=== PATIENT | female | born 1945 | race Caucasian/White ===

== ENCOUNTER → 2016-07-09 | Outpatient (CLI) | payer MEDICARE, BC | END | disposition home or self-care (01) | LOC: PCVCIMAG 13:02 | PROVIDERS: ATTEND Nuclear Medicine Nuclear Cardiology | DX: I73.9 Peripheral vascular disease, unspecified (principal); K55.1 Chronic vascular disorders of intestine; I63.9 Cerebral infarction, unspecified; I25.10 Atherosclerotic heart disease of native coronary artery without angina pectoris; E78.5 Hyperlipidemia, unspecified; Z95.1 Presence of aortocoronary bypass graft | CPT/HCPCS: 93923; 93925; 93975; G0463; 93924 ==

== ENCOUNTER → 2017-01-14 | Outpatient (CLI) | payer MEDICARE, BC ==
--- NOTE | 2017-01-14 09:48 | PCVCIMAG ---
APPROVED REPORT Laterality: Bilateral Patient Location: Out-Patient Indications Stenosis Doppler Spectral Velocity Analysis PSV / EDVPSV / EDV ECA (R) 141 / 9 cm/sECA (L) 112 / 0 cm/s dICA (R) 101 / 21 cm/sdICA (L) 91 / 16 cm/s Alexander (R) 138 / 21 cm/smICA (L) 171 / 25 cm/s pICA (R) 127 / 20 cm/spICA (L) 177 / 35 cm/s Bulb (R) 84 / 15 cm/sBulb (L) 88 / 13 cm/s dCCA (R) 86 / 15 cm/sdCCA (L) 72 / 11 cm/s mCCA (R) 96 / 15 cm/smCCA (L) 91 / 13 cm/s pCCA (R) 79 / 12 cm/spCCA (L) Vert (R) 48 / 11 cm/sVert (L) 56 / 39 cm/s ICA/CCA ICA/CCA Findings The right carotid bulb has mild plaque. The right proximal internal carotid artery shows <40% stenosis. The right common carotid artery shows <40% stenosis. The right external carotid artery shows no significant stenosis. The left carotid bulb has moderately severe calcified plaque. The left proximal internal carotid artery shows 60-70% stenosis. The left common carotid artery shows no significant stenosis. The left external carotid artery shows <40% stenosis. Conclusion 1. Right common and internal carotid artery stenoses (<40%) 2. Left internal carotid artery stenosis (60-70%) 3. Antegrade vertebral flow
--- NOTE | 2017-01-14 10:56 | PCVCIMAG ---
EXAM: BILATERAL LOWER EXTREMITY ARTERIAL DUPLEX INDICATION: Peripheral Arterial Disease. Leg pain. FINDINGS: Right Leg: Satisfactory arterial waveforms throughout the common/profunda/superficial femoral, popliteal, anterior tibial, peroneal, and posterior tibial arteries. No flow limiting stenosis seen. Left Leg: Mild stenosis throughout the common femoral artery. Elevated systolic velocity of 305 cm/s the origins superficial femoral artery consistent with 60-70% restenosis in the proximal portion of a prior stent. Upper superficial femoral artery stent otherwise patent. Stent in the distal superficial femoral artery and upper popliteal artery showing good patency. The anterior tibial, peroneal, posterior tibial arteries are patent. IMPRESSION: No flow limiting stenosis in the right lower extremity. 60-70% restenosis at the origin of the left superficial femoral artery within prior stent. Otherwise no flow-limiting stenosis in the left lower extremity as reviewed above. LOC:[id number]
--- NOTE | 2017-01-14 11:01 | PCVCIMAG ---
EXAM: MESENTERIC ARTERIAL DUPLEX INDICATION: Mesenteric Atherosclerosis. FINDINGS: Celiac [place]: No flow limiting stenosis. No branch vessel stenosis. Superior Mesenteric Artery: 80% restenosis proximal vessel within prior stent. Inferior Mesenteric Artery: No flow limiting stenosis. No branch vessel stenosis. Prior stent proximally maintaining satisfactory patency. Mesenteric veins are patent where seen. IMPRESSION: 80% restenosis within prior stent proximal superior mesenteric artery. Previous inferior mesenteric artery stent maintaining satisfactory patency. LOC:[place] [id number]
== END | disposition home or self-care (01) ==
LOC: PCVCIMAG 09:01
PROVIDERS: ATTEND Nuclear Medicine Nuclear Cardiology
DX: K55.1 Chronic vascular disorders of intestine (principal); I25.10 Atherosclerotic heart disease of native coronary artery without angina pectoris; I73.9 Peripheral vascular disease, unspecified; I77.9 Disorder of arteries and arterioles, unspecified; I10 Essential (primary) hypertension; E78.00 Pure hypercholesterolemia, unspecified; I65.23 Occlusion and stenosis of bilateral carotid arteries; M79.605 Pain in left leg; M79.604 Pain in right leg; Z87.891 Personal history of nicotine dependence
CPT/HCPCS: 93880; 93925; 93975; G0463

== ENCOUNTER → 2017-01-21 | Outpatient (CLI) | payer MEDICARE, BC ==
[~2017-01-21] MED LIST: DIAZEPAM 10 MG TABLET. ONE; HEPARIN SODIUM 5,000 UNIT/ML VIAL for PCVC. ONE; IODIXANOL 270 MG/ML 100 ML VIAL. ONE; IOHEXOL 300 MG/ML 100ML VIAL. ONE; IV NORMAL SALINE 1000ML BAG 1,000 ML ONE; IV NORMAL SALINE 500ML BAG 0 ML ONE; LIDOCAINE 1% Multi-Dose 20 ML VIAL. ONE; LIDOCAINE 1%/EPI 1:100,000 20 ML VIAL. ONE; MIDAZOLAM HCL/PF 2 MG/2 ML VIAL. ONE; VANCOMYCIN 1GM IVPB FOR OMNI 250 ML ONE; fentaNYL PF VIAL 100 MCG/2 ML VIAL ONE; hydrALAZINE 20 MG/ML VIAL. ONE
--- NOTE | 2017-01-21 10:30 | PCVCINTER ---
EXAM: 1. AORTOGRAM AND BILATERAL LOWER EXTREMITY RUNOFF ANGIOGRAM 2. BILATERAL RENAL ANGIOGRAPHY 3. COMPLETE MESENTERIC ANGIOGRAPHY. 4. SUPERIOR MESENTERIC ARTERY STENT GRAFT PLACEMENT INDICATION: Peripheral arterial disease. Coronary artery disease. Chronic mesenteric ischemia. Mesenteric atherosclerosis. Leg pain. Hypertension. Renal atherosclerosis. PROCEDURE: Procedure and risks of angiography intervention is appropriate including limb loss stroke and were discussed with the patient's family and consent obtained. The patient's right groin was prepped abnormal sterile fashion. IV conscious sedation was used to procedure with appropriate monitoring 8:15 AM through 9:45 AM. Ultrasound was used to interrogate the right groin and showed the right common femoral artery to be patent. A permanent spot film was obtained. Under ultrasound guidance access into the right common femoral artery was obtained and a 5 Divehi sheath was placed. Through this a 5 Divehi flush catheter was placed into the abdominal aorta at the level of the renal arteries and AP aortogram was performed. Catheter was positioned at the aortic bifurcation and both oblique views of the pelvis were obtained. Catheter was positioned into the right external iliac artery and right leg runoff angiography was performed. Catheter was exchanged for a visceral catheter was placed into the right renal arteries and right renal angiograms obtained. Catheter was placed into the the left renal arteries and left renal angiograms were obtained. Catheter was advanced to the level of the left external iliac artery and left leg runoff angiography was obtained. Catheter was placed in the inferior mesenteric artery and JEFFREY angiogram obtained. Catheter placed in the celiac axis and celiac angiogram obtained. Catheter was placed in the superior mesenteric artery and SMA angiogram obtained. Patient was given 4000 units of heparin. A 7 Divehi sheath was placed via the right groin to the level of the superior mesenteric artery artery. Stent placement across the areas of high-grade stenosis in the superior mesenteric artery was carried out with a 6 x 19 E BX stent graft with subsequent dilatation to 6.0 mm. Catheters and wires removed. Sheath was removed and hemostasis obtained using the FISH device. No immediate complications. FINDINGS: Aortogram: There is one right and one left renal artery. Moderate plaque infrarenal abdominal aorta without significant stenosis. Pelvis: Right common iliac artery is patent. Previous stents in the left common iliac artery, right external iliac artery, and left external iliac artery all show good patency. The right common femoral artery is patent. 60% stenosis at the origin of the right profunda femoral artery. Extensive calcific plaque mid and lower common femoral artery results in 50% stenosis. The profunda femoral artery shows only minimal stenosis at its origin. Right renal artery: Moderate plaque proximal vessel results in 30% stenosis not felt to be flow-limiting. Left renal artery: Previous day proximal vessel is widely patent. No significant stenosis. Right leg: Scattered plaque in the superficial femoral artery and popliteal artery without evidence of significant stenosis. Three-vessel runoff into the foot. Left leg: Large calcified plaque at the origin of the superior mesenteric artery results in 50% stenosis which is not felt to be flow-limiting. Stent proximal superficial femoral artery and midportion of the superficial femoral artery both show good patency. Previous mid popliteal artery stent is widely patent. Three-vessel runoff into the foot. Celiac [place]: 60% stenosis proximal vessel. No branch vessel stenosis. Superior mesenteric artery: 80% restenosis proximal super mesenteric artery within the proximal/midportion of previous stent. Following the procedure as above the vessel is widely patent with good position of the stent graft. Inferior mesenteric artery: Previous stent proximal vessel good patency. No branch vessel stenosis. IMPRESSION: 80% restenosis proximal superior mesenteric artery within prior stent was treated with stent grafts with vessel not being widely patent. 60% stenosis proximal celiac axis is not flow-limiting. Previous inferior mesenteric artery stent maintaining good patency. Previous left renal artery stent shows good patency. follow up LOC:[place] [id number]
== END | disposition home or self-care (01) ==
LOC: PCVCINTER 07:22
PROVIDERS: ATTEND Nuclear Medicine Nuclear Cardiology
DX: I70.212 Atherosclerosis of native arteries of extremities with intermittent claudication, left leg (principal); I25.10 Atherosclerotic heart disease of native coronary artery without angina pectoris; I10 Essential (primary) hypertension; I70.1 Atherosclerosis of renal artery
CPT/HCPCS: 36245; 36246; 36252; 37236; 75716; 75726; 76937; 99152; 99153; C1725; C1751; C1769; C1894; J1644; J2250; J3010; J3370; J3490; J7030; Q9966; 75625; J0360; J7040; Q9967

== ENCOUNTER → 2017-04-22 | Outpatient (CLI) | payer MEDICARE, BC ==
[~2017-04-22] MED LIST changes: -DIAZEPAM 10 MG TABLET. ONE; -HEPARIN SODIUM 5,000 UNIT/ML VIAL for PCVC. ONE; -IODIXANOL 270 MG/ML 100 ML VIAL. ONE; -IOHEXOL 300 MG/ML 100ML VIAL. ONE; -IV NORMAL SALINE 1000ML BAG 1,000 ML ONE; -IV NORMAL SALINE 500ML BAG 0 ML ONE; -LIDOCAINE 1% Multi-Dose 20 ML VIAL. ONE; -LIDOCAINE 1%/EPI 1:100,000 20 ML VIAL. ONE; -MIDAZOLAM HCL/PF 2 MG/2 ML VIAL. ONE; +REGADENOSON 0.4 MG/5 ML DISP.SYRIN. IV; -VANCOMYCIN 1GM IVPB FOR OMNI 250 ML ONE; -fentaNYL PF VIAL 100 MCG/2 ML VIAL ONE; -hydrALAZINE 20 MG/ML VIAL. ONE
== END | disposition home or self-care (01) ==
LOC: PCVCIMAG 08:18
DX: Z01.818 Encounter for other preprocedural examination (principal); R07.9 Chest pain, unspecified; R06.00 Dyspnea, unspecified; R53.83 Other fatigue; E78.5 Hyperlipidemia, unspecified; I73.9 Peripheral vascular disease, unspecified; I25.10 Atherosclerotic heart disease of native coronary artery without angina pectoris; Z87.891 Personal history of nicotine dependence
CPT/HCPCS: 78452; 93017; A9500; J2785

== ENCOUNTER → 2017-08-30 | Outpatient (CLI) | payer MEDICARE, BC | END | disposition home or self-care (01) | LOC: PCVCIMAG 15:40 | DX: I65.23 Occlusion and stenosis of bilateral carotid arteries (principal); I70.8 Atherosclerosis of other arteries; I73.9 Peripheral vascular disease, unspecified; K55.1 Chronic vascular disorders of intestine; Z95.828 Presence of other vascular implants and grafts; Z88.8 Allergy status to other drugs, medicaments and biological substances | CPT/HCPCS: 93880; 93925; 93975; G0463 ==

== ENCOUNTER → 2018-01-05 | Outpatient (CLI) | payer MEDICARE, BC | END | disposition home or self-care (01) | LOC: PCVCCLINIC 14:00 | PROVIDERS: ATTEND Internal Medicine Cardiovascular Disease | DX: I25.10 Atherosclerotic heart disease of native coronary artery without angina pectoris (principal); I77.9 Disorder of arteries and arterioles, unspecified; I10 Essential (primary) hypertension; E78.00 Pure hypercholesterolemia, unspecified; K55.1 Chronic vascular disorders of intestine; I73.9 Peripheral vascular disease, unspecified; M79.604 Pain in right leg; M79.605 Pain in left leg; Z86.73 Personal history of transient ischemic attack (TIA), and cerebral infarction without residual deficits; Z87.891 Personal history of nicotine dependence; Z79.82 Long term (current) use of aspirin | CPT/HCPCS: 80061; 93005; G0463 ==

== ENCOUNTER → 2018-01-17 | Outpatient (CLI) | payer MEDICARE, BC ==
--- NOTE | 2018-01-17 17:53 | PCVCIMAG ---
EXAM: NONINVASIVE ARTERIAL EXAMINATION OF BOTH LOWER EXTREMITIES INCLUDING PRE AND POST EXERCISE PRESSURE MEASUREMENTS AND DOPPLER WAVEFORMS INDICATION: Peripheral Arterial Disease. Leg pain. FINDINGS: Right Brachial: 134 mm Hg. Right Dorsalis Pedis: 125 mm Hg. Right Posterior Tibial: 124 mm Hg. Right ANASTASIA = 0.93. Left Brachial: 128 mm Hg. Left Dorsalis Pedis: 119 mm Hg. Left Posterior Tibial: 114 mm Hg. Left ANASTASIA = 0.89. Post Exercise: Right Brachial 131 mm Hg. Right Dorsalis Pedis: 94 mm Hg. Left Dorsalis Pedis: 77 mm Hg. Right ANASTASIA = 0.72. Left ANASTASIA = 0.59. IMPRESSION: No resting ischemia in the right lower extremity. Mild exercise induced ischemia in the right lower extremity. No resting ischemia in the left lower extremity. Mild to moderate exercise induced ischemia in the left lower extremity. LOC:[id number]
--- NOTE | 2018-01-17 17:55 | PCVCIMAG ---
EXAM: BILATERAL LOWER EXTREMITY ARTERIAL DUPLEX INDICATION: Peripheral Arterial Disease. Leg pain. FINDINGS: Right Leg: Common femoral and profunda femoral arteries are patent. Superficial femoral artery and popliteal artery are patent. The anterior tibial, peroneal, and posterior tibial arteries are patent. Left Leg: Moderate stenosis [place] common femoral artery unchanged. Previous superficial femoral artery stent maintaining satisfactory patency. Moderate stenosis origin profunda femoral artery. Popliteal artery is patent. The anterior tibial, peroneal, and posterior tibial arteries are patent. IMPRESSION: No flow limiting stenosis in the right lower extremity. Previous left superficial femoral artery stent maintaining satisfactory patency. Increased systolic velocities mid and lower common femoral artery and at the origin the superficial femoral artery consistent with 70% stenosis is unchanged since prior study. LOC:[id number]
== END | disposition home or self-care (01) ==
LOC: PCVCIMAG 15:00
PROVIDERS: ATTEND Nuclear Medicine Nuclear Cardiology
DX: I73.9 Peripheral vascular disease, unspecified (principal); I77.9 Disorder of arteries and arterioles, unspecified; I25.10 Atherosclerotic heart disease of native coronary artery without angina pectoris; I10 Essential (primary) hypertension; E78.00 Pure hypercholesterolemia, unspecified; K55.1 Chronic vascular disorders of intestine; Z79.82 Long term (current) use of aspirin; Z79.899 Other long term (current) drug therapy
CPT/HCPCS: 93923; 93925; G0463; 93924

== ENCOUNTER → 2018-07-17 | Outpatient (CLI) | payer MEDICARE, BC ==
--- NOTE | 2018-07-17 16:15 | PCVCIMAG ---
EXAM: BILATERAL CAROTID DUPLEX INDICATION: Carotid Occlusive Disease. FINDINGS: Doppler Measurements (centimeters per second): RIGHT: Peak CCA-94, Peak ECA-89, Diastolic ICA-22, Peak ICA-117, ICA/CCA Ratio-1.2. LEFT: Peak CCA-93, Peak ECA-150, Diastolic ICA-35, Peak ICA-203, ICA/CCA Ratio-2.2. RIGHT CAROTID: The carotid bulb has mild plaque. The proximal internal carotid artery shows <40% stenosis. The common carotid artery shows no significant stenosis. The external carotid artery shows no significant stenosis. LEFT CAROTID: The carotid bulb has moderate plaque. The proximal internal carotid artery shows 60-70% stenosis. The common carotid artery shows no significant stenosis. The external carotid artery shows 50% stenosis. Antegrade flow in both vertebral arteries. IMPRESSION: <40% stenosis of the right internal carotid artery with mild plaque. 60-70% stenosis of the left internal carotid artery with moderate plaque. No significant change since August 2017. LOC:[id number]
--- NOTE | 2018-07-17 16:22 | PCVCIMAG ---
EXAM: NONINVASIVE ARTERIAL EXAMINATION OF BOTH LOWER EXTREMITIES INCLUDING PRE AND POST EXERCISE PRESSURE MEASUREMENTS AND DOPPLER WAVEFORMS INDICATION: Peripheral Arterial Disease. Leg pain. FINDINGS: Right Brachial: 142 mm Hg. Right Dorsalis Pedis: 119 mm Hg. Right Posterior Tibial: 122 mm Hg. Right ANASTASIA = 0.86. Left Brachial: 140 mm Hg. Left Dorsalis Pedis: 97 mm Hg. Left Posterior Tibial: 108 mm Hg. Left ANASTASIA = 0.76. Post Exercise: Right Brachial 132 mm Hg. Right Posterior Tibial: 100 mm Hg. Left Posterior Tibial: 102 mm Hg. Right ANASTASIA = 0.76. Left ANASTASIA = 0.77. IMPRESSION: No resting ischemia in the right lower extremity. Mild exercise induced ischemia in the right lower extremity. Mild resting ischemia in the left lower extremity. Mild exercise induced ischemia in the left lower extremity. LOC:[id number]
--- NOTE | 2018-07-17 16:47 | PCVCIMAG ---
EXAM: BILATERAL LOWER EXTREMITY ARTERIAL DUPLEX INDICATION: Peripheral Arterial Disease. Leg pain. FINDINGS: Right Leg: Satisfactory arterial waveforms throughout the common/profunda/superficial femoral, popliteal, anterior tibial, peroneal, and posterior tibial arteries. No flow limiting stenosis seen. Left Le% stenosis distal common femoral artery. Moderate stenosis origin profunda femoral artery. Previous stents in the superficial femoral artery maintaining satisfactory patency. Previous popliteal artery stent is patent. The anterior tibial, peroneal, and posterior tibial arteries are patent. IMPRESSION: No flow limiting stenosis in the right lower extremity. 80% stenosis near the junction of the left common femoral and origin superficial femoral artery similar to prior study. Previous left superficial femoral artery stent maintaining satisfactory patency. LOC:[id number]
== END | disposition home or self-care (01) ==
LOC: PCVCIMAG 14:39
PROVIDERS: ATTEND Nuclear Medicine Nuclear Cardiology
DX: I65.23 Occlusion and stenosis of bilateral carotid arteries (principal); I73.9 Peripheral vascular disease, unspecified; E78.00 Pure hypercholesterolemia, unspecified
CPT/HCPCS: 93880; 93924; 93925

== ENCOUNTER → 2018-07-20 | Outpatient (CLI) | payer MEDICARE, BC | END | disposition home or self-care (01) | LOC: PCVCCLINIC 11:00 | PROVIDERS: ATTEND Nuclear Medicine Nuclear Cardiology | DX: I25.10 Atherosclerotic heart disease of native coronary artery without angina pectoris (principal); I77.9 Disorder of arteries and arterioles, unspecified; I73.9 Peripheral vascular disease, unspecified; I10 Essential (primary) hypertension; E78.00 Pure hypercholesterolemia, unspecified; K55.1 Chronic vascular disorders of intestine; E78.5 Hyperlipidemia, unspecified; Z87.891 Personal history of nicotine dependence; Z79.899 Other long term (current) drug therapy; Z79.82 Long term (current) use of aspirin | CPT/HCPCS: G0463 ==

== ENCOUNTER → 2018-10-05 | Outpatient (CLI) | payer MEDICARE, BC | END | disposition home or self-care (01) | LOC: PCVCCLINIC 12:31 | PROVIDERS: ATTEND Internal Medicine Cardiovascular Disease | DX: I25.10 Atherosclerotic heart disease of native coronary artery without angina pectoris (principal); I77.9 Disorder of arteries and arterioles, unspecified; I10 Essential (primary) hypertension; I73.9 Peripheral vascular disease, unspecified; R09.89 Other specified symptoms and signs involving the circulatory and respiratory systems; E78.00 Pure hypercholesterolemia, unspecified; E78.5 Hyperlipidemia, unspecified; Z88.8 Allergy status to other drugs, medicaments and biological substances; Z79.82 Long term (current) use of aspirin; Z79.899 Other long term (current) drug therapy; Z87.891 Personal history of nicotine dependence | CPT/HCPCS: 36415; 80061; 93005; G0463 ==

== ENCOUNTER → 2019-01-01 | Outpatient (CLI) | payer MEDICARE, BC ==
--- NOTE | 2019-01-01 15:47 | PCVCIMAG ---
EXAM: ARTERIAL DUPLEX BOTH UPPER EXTREMITIES INDICATION: Arm pain and swelling. Discoloration in fingers. FINDINGS: Left arm: The innominate artery, subclavian artery, axillary artery, brachial artery, radial artery, and ulnar arteries all show good patency without flow-limiting stenosis. IMPRESSION: No evidence of flow-limiting arterial stenosis in the right upper extremity. Right arm systolic pressure 140 mmHg and left arm 132 mmHg. LOC:[id number]
--- NOTE | 2019-01-01 15:49 | PCVCIMAG ---
EXAM: LEFT LOWER EXTREMITY ARTERIAL DUPLEX INDICATION: Peripheral Arterial Disease. Leg pain. FINDINGS: Left Leg: Satisfactory arterial waveforms throughout the common/profunda/superficial femoral, popliteal, anterior tibial, peroneal, and posterior tibial arteries. No flow limiting stenosis seen. Previous superficial femoral artery and popliteal artery stents maintaining satisfactory patency. IMPRESSION: No flow limiting stenosis in the left lower extremity. Previous left superficial femoral artery and popliteal artery stents maintaining satisfactory patency. Incidental note is made of 3.7 x 4.6 x 6.7 cm subcutaneous fluid collection most consistent with postoperative seroma likely from prior left common femoral artery endarterectomy. LOC:[id number]
== END | disposition home or self-care (01) ==
LOC: PCVCIMAG 13:12
PROVIDERS: ATTEND Nuclear Medicine Nuclear Cardiology
DX: I73.9 Peripheral vascular disease, unspecified (principal); I70.90 Unspecified atherosclerosis; I97.648 Postprocedural seroma of a circulatory system organ or structure following other circulatory system procedure
CPT/HCPCS: 93926; 93931